=== PATIENT | female | born 1995 | race Caucasian/White ===

== ENCOUNTER 2017-10-24 20:37 | Emergency (ER) | payer OTHER ==
[2017-10-24 20:45] VITALS: RESP 18
--- NOTE | 2017-10-24 21:07 | EDPHY ---
H & P Stated Complaint: left thigh bump, denies trauma on blood thinners Time Seen by Provider: 10/24/17 20:48 HPI/ROS: CHIEF COMPLAINT: Left leg lump HISTORY OF PRESENT ILLNESS: The patient is a 22-year-old female who takes Coumadin for history of antiphospholipid antibody syndrome and lupus and previous DVT. She states that 2 days ago she noticed a tender bump to her left groin region. It has gotten worse since then. No fever. No drainage. REVIEW OF SYSTEMS: Constitutional: denies: chills, fever, recent illness, recent injury EENTM: denies: blurred vision, double vision, nose congestion Respiratory: denies: cough, shortness of breath Cardiac: denies: chest pain, irregular heart rate, lightheadedness, palpitations Gastrointestinal/Abdominal: denies: abdominal pain, diarrhea, nausea, vomiting, blood streaked stools Genitourinary: denies: dysuria, frequency, hematuria, pain Musculoskeletal: denies: joint pain, muscle pain Skin: See HPI Neurological: denies: headache, numbness, paresthesia, tingling, dizziness, weakness Hematologic/Lymphatic: denies: blood clots, easy bleeding, easy bruising Immunologic/allergic: denies: HIV/AIDS, transplant EXAM: GENERAL: Well-appearing, well-nourished and in no acute distress. HEAD: Atraumatic, normocephalic. EYES: Pupils equal round and reactive to light, extraocular movements intact, sclera anicteric, conjunctiva are normal. ENT: TMs normal, nares patent, oropharynx clear without exudates. Moist mucous membranes. NECK: Normal range of motion, supple without lymphadenopathy or JVD. LUNGS: Breath sounds clear to auscultation bilaterally and equal. No wheezes rales or rhonchi. HEART: Regular rate and rhythm without murmurs, rubs or gallops. ABDOMEN: Soft, nontender, normoactive bowel sounds. No guarding, no rebound. No masses appreciated. BACK: No CVA tenderness, no spinal tenderness, step-offs or deformities EXTREMITIES: Normal range of motion, no pitting or edema. No clubbing or cyanosis. NEUROLOGICAL: Cranial nerves II through XII grossly intact. Normal speech, normal gait. 5/5 strength, normal movement in all extremities, normal sensation PSYCH: Normal mood, normal affect. SKIN: 3 x 3 cm fluctuant abscess to left groin region. Tender. Slightly warm. No surrounding cellulitis Source: Patient Exam Limitations: No limitations - Personal History LMP (Females 10-55): Now Current Tetanus/Diphtheria Vaccine: Yes Current Tetanus Diphtheria and Acellular Pertussis (TDAP): Yes Tetanus Vaccine Date: with routine childhood vaccines - Medical/Surgical History Hx Asthma: No Hx Chronic Respiratory Disease: No Hx Diabetes: No Hx Cardiac Disease: No Hx Renal Disease: No Hx Cirrhosis: No Hx Alcoholism: No Hx HIV/AIDS: No Hx Splenectomy or Spleen Trauma: No Other PMH: DVT, LUPUS, JAW SURGERY TMJ, ANTI FOSPHOLIPID SYNFDROM - Family History Significant Family History: No pertinent family hx - Social History Smoking Status: Never smoked Alcohol Use: Sober Drug Use: None Constitutional: Initial Vital Signs Temperature (C) 36.8 C 10/24/17 20:42 Heart Rate 93 10/24/17 20:42 Respiratory Rate 18 10/24/17 20:42 Blood Pressure 116/64 10/24/17 20:42 O2 Sat (%) 96 10/24/17 20:42 O2 Delivery Mode Room Air Allergies/Adverse Reactions: No Known Allergies Allergy (Unverified 10/24/17 20:45) Home Medications: Medication Instructions Recorded Albuterol [Proventil Inhaler] 1 - 2 puffs IH PRN PRN 03/03/13 Cetirizine [ZyrTEC 10 mg (RX)] 10 mg PO DAILY PRN 03/03/13 Multivitamins [Tab-A-Marichuy] 1 each PO DAILY 03/03/13 Naloxone HCl [Evzio] 0.4 mg IJ 10/24/17 Sulfamethox/Tmp 800/160 mg 1 tab PO BID #14 tab 10/24/17 [Bactrim Ds] Thyroid,Pork [[place] Thyroid] 120 mg PO 10/24/17 Warfarin Sodium [Coumadin] 10 mg PO 10/24/17 Medical Decision Making Procedures: Procedure: Abscess drainage. The patient's abscess was located on the left thigh. I obtained verbal consent from the patient to drain the abscess who was informed about the possibility of bleeding and pain. The abscess was incised with 11 blade scalpel and about 3 cc of purulent drainage was expressed. I irrigated the wound and placed some packing. The patient tolerated the procedure well. The procedure was performed by myself. ED Course/Re-evaluation: Patient tolerated the procedure very well. Abscess was packed we discussed instructions for cleaning and bandaging. Patient and mom are happy with this plan. The procedure was done in the presence of nurse Morales. Differential Diagnosis: Partial list of the Differential diagnosis considered include but were not limited to; abscess, cellulitis and although unlikely based on the history and physical exam, I also considered DVT, hematoma. I discussed these differential diagnoses and the plan with the patient as well as the usual and expected course. The patient understands that the diagnosis is provisional and that in medicine we are not always correct and that further workup is often warranted. Usual and customary warnings were given. All of the patient's questions were answered. The patient was instructed to return to the emergency department should the symptoms at all worsen or return, otherwise to followup with the physician as we discussed. - Data Points Medications Given: Discontinued Medications Trimethoprim/Sulfamethoxazole (Bactrim Ds) 1 ea PO EDNOW ONE PRN Reason: Protocol Stop: 10/24/17 22:01 Last Admin: 10/24/17 22:10 Dose: 1 ea Departure - Departure Disposition: Home, Routine, Self-Care Clinical Impression: Abscess Condition: Fair Instructions: Sulfamethoxazole/Trimethoprim (By mouth), Abscess (ED) Referrals: NONE *PRIMARY CARE P,. [Primary Care Provider] - As per Instructions Prescriptions: Sulfamethox/Tmp 800/160 mg [Bactrim Ds] 1 tab PO BID #14 tab
[2017-10-24] MEDS ORDERED: SULFAMETHOX/TMP 800/160 MG 1 TAB PO ONE (22:00)
[2017-10-24 22:18] VITALS: BP 117/68; PULSE 79; TEMP 97.9; O2SAT 95
== END 2017-10-24 22:17 | disposition home or self-care (01) ==
PROC: 0H9JX0Z Drainage of Left Upper Leg Skin with Drainage Device, External Approach (ICD-10-PCS; principal; 2017-10-24)
DX: L02.416 Cutaneous abscess of left lower limb (principal); Z79.01 Long term (current) use of anticoagulants